=== PATIENT | male | born 1945 | race Caucasian/White ===

== ENCOUNTER 2019-03-13 05:16 | Inpatient (IN) | payer OTHER ==
--- NOTE | 2019-03-02 15:55 | NUR ---
PT CAME INTO PRE-OP CLINIC TODAY FOR PRE-OP TSA. PT READ THE SIGN ABOUT OPEN AREAS ON SKIN AND NOTIFIED ME HE HAD 2 AREAS ON HIS LT SIDE OPEN. UPON EXAM PT HAD 1.5 CM AREA ON LT NECK AND A 2CM AREA ON LT CHEST WHERE HE HAD MELANOMA REMOVED APPROX 2 WEEKS AGO. PT ALSO MENTIONED HE HAD CTR SURGERY ON THE RT HAND ABOUT 2 WEEKS WELL AND HAS A SCABBED BUT FRESHLY SCARED AREA ON RT PALM. PER PT HE WAS SEEN BY DR. MILLS TODAY AND DR. MILLS SAW THESE AREAS AND MENTIONED THEY WOULD BE OK AND WILL GO AHEAD WITH SURGERY.
[2019-03-02 16:40] LABS: BASOPHILS % (AUTO) 0.4 % (0-1); EOSINOPHILS # (AUTO) 0.2 X10'3 (0-0.9); EOSINOPHILS % (AUTO) 2.7 % (0-6); LYMPHOCYTES # (AUTO) 1.9 X10'3 (1.1-4.8); LYMPHOCYTES % (AUTO) 30.4 % (21-51); MEAN CORPUSCULAR HEMOGLOBIN 29.9 PG (27.0-31.0); MEAN CORPUSCULAR HGB CONC 34.3 g/dL (33.0-36.5); MEAN CORPUSCULAR VOLUME 87.2 FL (78-98); MEAN PLATELET VOLUME 8.6 FL (7.4-10.4); MONOCYTES # (AUTO) 0.6 X10'3 (0-0.9); MONOCYTES % (AUTO) 9.4 % (2-12); NEUTROPHILS # (AUTO) 3.6 X10'3 (1.8-7.7); NEUTROPHILS % (AUTO) 57.1 % (42-75); PRE OP HEMATOCRIT 39.1 % (42.0-52.0); PRE OP HEMOGLOBIN 13.4 g/dL (14.0-17.9); PRE OP PLATELET COUNT 169 X10'3 (140-440); RED BLOOD COUNT 4.49 X10'6 (4.70-6.10); RED CELL DISTRIBUTION WIDTH 14.7 % (11.5-14.5)
[2019-03-02 16:55] LABS: ALBUMIN 3.9 G/DL (3.4-5.0); ALKALINE PHOSPHATASE 77 IU/L (46-116); BLOOD UREA NITROGEN 21 MG/DL (7-18); BUN/CREATININE RATIO 19.3 (5.4-32.0); CALCIUM 10.1 MG/DL (8.5-10.1); CHLORIDE 108 MMOL/L (99-107); CREATININE 1.09 MG/DL (0.60-1.10); PRE OP ALT 24 U/L (30-65); PRE OP ANION GAP 8 (8-16); PRE OP AST 15 U/L (10-37); PRE OP BILIRUB, TOTAL 0.7 MG/DL (0.0-1.0); PRE OP GLUCOSE 134 MG/DL (70-104); PRE OP POTASSIUM 3.8 MMOL/L (3.4-5.1); PRE OP SODIUM 144 MMOL/L (135-145); TOTAL CARBON DIOXIDE 28.5 MMOL/L (24-32); TOTAL PROTEIN 7.8 G/DL (6.4-8.2); eGFR 66 ML/MIN
[2019-03-02 16:57] LABS: PRE OP INR 1.1 INR; PRE OP PROTIME 11.3 SECONDS (9.0-12.0)
[2019-03-02 17:00] LABS: HEMOGLOBIN A1C 6.5 % (4.5-6.2)
[2019-03-13] VITALS (15 sets, daily range): BP systolic 111–158; BP diastolic 55–98
[~2019-03-13] VITALS: Ht 190.5 cm; Wt 130.0 kg
[~2019-03-13 05:16] MED LIST: CHOL400T32 PO; CYAN500T63 PO; DABI150C PO; HYDR25TA4 PO; METF500T PO; PROP40TA72 PO; SIMV40TA PO; ringers solution, lacted 1,000 ML IV SCH
[2019-03-13] MEDS ORDERED: ceFAZolin 1GM/D5W- ADD-VANTAGE 50 ML IV ONE (05:30)
[2019-03-13] MEDS ORDERED: cefazolin/dext.iso 2gm/50ml 50 ML IV ONE (05:30)
[2019-03-13] MEDS ORDERED: vancomycin inj 1,500 MG in normal saline 300ml IV soln IV ONE (05:30)
[2019-03-13] MEDS ORDERED: famotidine 20mg tablet PO ONE (05:30)
[2019-03-13] MEDS ORDERED: LIDOcaine 1% (10mg/ml) 2ml vial ONE (05:58)
[2019-03-13] MEDS ORDERED: ketorolac trometh. 30mg/ml inj. ONE (07:59)
[2019-03-13] MEDS ORDERED: ROPIVAcaine 0.5% (5mg/ml) 30ml vial ONE ×2 (08:00→09:45)
[2019-03-13] MEDS ORDERED: tranexamic acid inj. 1,000 MG in normal saline 100ml IV soln 100 ML IV ONE ×3 (08:30→16:00)
[2019-03-13] MEDS ORDERED: ringers solution, lacted 1,000 ML IV SCH (08:31)
[2019-03-13] MEDS ORDERED: morphine 4 MG/ML inj SYRINge IV PRN ×2 (08:35)
[2019-03-13] MEDS ORDERED: ondansetron/PF 4mg/2ml inj IV PRN ×2 (08:35→13:00)
[2019-03-13] MEDS ORDERED: meperidine/PF 25mg/ml syringe IV PRN ×3 (08:35)
[2019-03-13] MEDS ORDERED: proCHLORperazine 10 MG/2 ml inj IV PRN (08:35)
[2019-03-13] MEDS ORDERED: MIDAZolam 5mg/5ml vial ONE (09:45)
[2019-03-13] MEDS ORDERED: fentaNYL/PF 50MCG/1 ML 2ML syringe ONE (09:45)
[2019-03-13] MEDS ORDERED: sevoflurane 250ml liquid IH ONE (09:47)
[2019-03-13] MEDS ORDERED: propofol inj 20 ML IV ONE (09:48)
[2019-03-13] MEDS ORDERED: LIDOcaine 1%/PF 5ML 10 MG/ML VIAL ONE (09:48)
[2019-03-13] MEDS ORDERED: rocuronium 10mg/ml inj IV ONE (10:35)
[2019-03-13] MEDS ORDERED: HYDROmorphone inj. 0.5 MG/0.5 ML DISP.SYRIN IV PRN (13:00)
[2019-03-13] MEDS ORDERED: HYDROmorphone 1 mg/ml syringe IV PRN (13:00)
[2019-03-13] MEDS ORDERED: oxyCODONE IR 5mg (immed. release) tablet PO PRN ×2 (13:00)
[2019-03-13] MEDS ORDERED: magnesium hydroxide 30ml (MOM) UD suspension PO PRN (13:00)
[2019-03-13] MEDS ORDERED: ROPIVAcaine 0.2%/PF PAIN PUMP 550 ML IJ SCH (13:00)
[2019-03-13] MEDS ORDERED: acetaminophen 325mg tablet PO PRN (13:00)
[2019-03-13] MEDS ORDERED: diphenhydrAMINE 25mg capsule PO PRN ×2 (13:00)
[2019-03-13] MEDS ORDERED: bisacodyl 10mg suppository rectal RC PRN (13:00)
--- NOTE | 2019-03-13 13:07 | NUR ---
Received from OR via , accompanied by Anesthesiologist DR VALIENTE and report given by Anesthesiolgist. AWAKENS TO VOICE. VITALS STABLE. DRESSING DI. LILI PAIN. RUE IN SIMPLE SLING. FINGERS WARM AND PINK.
--- NOTE | 2019-03-13 13:57 | NUR ---
Report called to receiving nurse. Transferred via BED Belongings . Special Issues communicated to receiving nurse. AWAKE AND ORIENTED. VITALS STABLE. DRESSING DI. LILI PAIN. TO ORTHO RM 4014M AT THIS TIME.
--- NOTE | 2019-03-13 14:00 | NUR ---
patient on floor. received report from Bakari LEIVA
[2019-03-13] MEDS: acetaminophen 325mg tablet PO SCH ×2 (15:07→20:02)
[2019-03-13] MEDS: potassium cl 20mEq in 1/2 NS 1,000 ML IV SCH ×2 (15:08→20:59)
[2019-03-13] MEDS: ceFAZolin 1GM/D5W- ADD-VANTAGE 50 ML IV SCH (15:32)
[2019-03-13] MEDS: metFORMIN 500mg tablet PO SCH (16:34)
--- NOTE | 2019-03-13 18:22 | NUR ---
Problems reprioritized. Patient report given, questions answered & plan of care reviewed with Kavon LEIVA.
--- NOTE | 2019-03-13 19:00 | NUR ---
Patient in room ORTHO 4015. I have received report from Kareem LEIVA and had the opportunity to ask questions and assume patient care.
[2019-03-13] MEDS: dabigatran 150mg capsule PO SCH (20:00)
[2019-03-13] MEDS ORDERED: vancomycin/NS 1 GM ADD-VANTAGE 250 ML IV SCH (20:00)
[2019-03-13] MEDS: propranolol 40mg tablet PO SCH (20:02)
[2019-03-13] MEDS ORDERED: sennosides 8.6mg tablet PO SCH (21:00)
[2019-03-14] MEDS: ceFAZolin 1GM/D5W- ADD-VANTAGE 50 ML IV SCH (00:10)
[2019-03-14 02:00] VITALS: BP 115/59
[2019-03-14] MEDS: acetaminophen 325mg tablet PO SCH ×2 (03:53→07:54)
[2019-03-14] MEDS: potassium cl 20mEq in 1/2 NS 1,000 ML IV SCH (04:59)
[2019-03-14 06:00] VITALS: BP 125/63
--- NOTE | 2019-03-14 06:58 | NUR ---
Problems reprioritized. Patient report given, questions answered & plan of care reviewed with Kavon LEIVA.
[2019-03-14 07:26] LABS: BASOPHILS % (AUTO) 0.3 % (0-1); EOSINOPHILS % (AUTO) 0.2 % (0-6); HEMATOCRIT 30.1 % (42.0-52.0); HEMOGLOBIN 10.5 g/dl (14.0-17.9); LYMPHOCYTES # (AUTO) 1.7 X10'3 (1.1-4.8); LYMPHOCYTES % (AUTO) 21.2 % (21-51); MEAN CORPUSCULAR HEMOGLOBIN 29.9 PG (27.0-31.0); MEAN CORPUSCULAR HGB CONC 34.8 g/dL (33.0-36.5); MEAN CORPUSCULAR VOLUME 86.1 FL (78-98); MEAN PLATELET VOLUME 8.5 FL (7.4-10.4); MONOCYTES # (AUTO) 0.9 X10'3 (0-0.9); NEUTROPHILS # (AUTO) 5.4 X10'3 (1.8-7.7); NEUTROPHILS % (AUTO) 67.3 % (42-75); PLATELET COUNT 189 X10'3 (140-440); RED CELL DISTRIBUTION WIDTH 14.7 % (11.5-14.5); WHITE BLOOD COUNT 8.1 X10'3 (4.5-11.0)
[2019-03-14 07:39] LABS: ANION GAP 10 (8-16); CHLORIDE 106 MMOL/L (99-107); SODIUM 141 MMOL/L (135-145)
[2019-03-14] MEDS: metFORMIN 500mg tablet PO SCH (07:54)
[2019-03-14] MEDS ORDERED: HYDROchlorothiazide 25mg tablet PO SCH (08:00)
[2019-03-14] MEDS ORDERED: atorvastatin 20mg tablet PO SCH (08:00)
[2019-03-14] MEDS ORDERED: cyanocobalamin 500mcg tablet PO SCH (08:00)
[2019-03-14] MEDS ORDERED: cholecalciferol (vitamin D) 400 unit tablet PO SCH (08:00)
[2019-03-14] MEDS: dabigatran 150mg capsule PO SCH (08:03)
[2019-03-14] MEDS: propranolol 40mg tablet PO SCH (08:03)
[2019-03-14] MEDS ORDERED: aspirin 325mg tablet PO SCH (08:30)
--- NOTE | 2019-03-14 09:02 | NUR ---
patient refused his insulin this morning, he said he does not take insulin just his metformin. patient educated on blood suger coverage and risks factors.
[2019-03-14 10:00] VITALS: BP 106/57
--- NOTE | 2019-03-14 11:05 | NUR ---
safe DC with spouse. all personal items with spouse
[2019-03-15] MEDS ORDERED: acetaminophen 325mg tablet PO PRN (13:00)
== END 2019-03-14 11:05 | disposition home or self-care (01) | DRG 483 ==
LOC: PAS IN 05:16 → EDSTATUS 12:00 → ORTHO 4S 14:00
PROVIDERS: ADMIT Orthopaedic Surgery; ATTEND Orthopaedic Surgery
PROC: 0LS40ZZ Reposition Left Upper Arm Tendon, Open Approach (ICD-10-PCS; 2019-03-13)
PROC: 3E0T3BZ Introduction of Anesthetic Agent into Peripheral Nerves and Plexi, Percutaneous Approach (ICD-10-PCS; 2019-03-13)
PROC: 0RRK00Z Replacement of Left Shoulder Joint with Reverse Ball and Socket Synthetic Substitute, Open Approach (ICD-10-PCS; principal; 2019-03-13 09:47)
DX: M19.012 Primary osteoarthritis, left shoulder (principal); D62 Acute posthemorrhagic anemia; I48.20 Chronic atrial fibrillation, unspecified; E11.9 Type 2 diabetes mellitus without complications; E78.5 Hyperlipidemia, unspecified; I10 Essential (primary) hypertension; M65.812 Other synovitis and tenosynovitis, left shoulder; M75.122 Complete rotator cuff tear or rupture of left shoulder, not specified as traumatic; M81.0 Age-related osteoporosis without current pathological fracture; E66.9 Obesity, unspecified; Z68.35 Body mass index [BMI] 35.0-35.9, adult; Z79.899 Other long term (current) drug therapy
CPT/HCPCS: 36415; 80051; 80053; 82948; 83036; 85025; 85610; 85730; 87081; 97161; 97530; A4215; A4565; A4618; A7000; C1776; G0378; J0690; J1885; J2001; J2250; J2704; J2795; J3010; J3370; J3480; J7120

== ENCOUNTER 2020-07-08 10:57 | Emergency (ER) | payer OTHER ==
[~2020-07-08] VITALS: Ht 193 cm; Wt 123.2 kg
[~2020-07-08 10:57] MED LIST changes: -CYAN500T63 PO; +CYAN500T71 PO; -ringers solution, lacted 1,000 ML IV SCH
--- NOTE | 2020-07-08 12:14 | NUR ---
TOMER [phone]
[2020-07-08 12:25] LABS: CLARITY,URINE CLEAR (Clear); COLOR,URINE YELLOW (Yellow); GLUCOSE, URINE NEGATIVE (Neg); KETONES,URINE NEGATIVE (Neg); LEUKOCYTE ESTERASE ,URINE NEGATIVE (Neg); NITRITES, URINE NEGATIVE (Neg); OCCULT BLOOD,URINE LARGE (Neg); PH,URINE 5.5 (4.8-8.0); PROTEIN,URINE 30 mg/dl (Neg); UROBILINOGEN,URINE 0.2 E.U/dL (0.2-1.0)
[2020-07-08 12:31] LABS: UA COLLECTION TYPE CLN CATCH MIDSTREAM
[2020-07-08 12:38] LABS: MUCUS STRANDS FEW /LPF (Neg); SQUAMOUS EPITHELIAL CELL,UR FEW /LPF (FEW)
[2020-07-08 12:39] LABS: BACTERIA,URINE FEW /HPF (Neg); RBC,URINE 20-50 /HPF (0-2)
[2020-07-08 12:41] LABS: WBC,URINE 0-4 /HPF (0-4)
[2020-07-08] MEDS ORDERED: LIDOcaine 2% 10ml TOPICAL JELLY (Urojet) TP ONE (12:45)
--- NOTE | 2020-07-08 13:08 | NUR ---
2 ATTEMPTS AT A LESTER, NO SUCCESS, BLEEDING FROM PENIS.
[2020-07-08 13:10] VITALS: BP 194/105
--- NOTE | 2020-07-08 14:20 | NUR ---
DR LAINEZ AT BEDSIDE PLACING FC.
== END 2020-07-08 15:11 | disposition home or self-care (01) ==
LOC: ER 10:58
DX: R33.9 Retention of urine, unspecified (principal); Z88.8 Allergy status to other drugs, medicaments and biological substances; Z79.899 Other long term (current) drug therapy
CPT/HCPCS: 51702; 81001; 99284

== ENCOUNTER 2020-07-15 10:46 | Emergency (ER) | payer OTHER, MEDICARE ==
[~2020-07-15] VITALS: Ht 182.9 cm; Wt 120.0 kg
[2020-07-15 10:53] VITALS: BP 153/88
== END 2020-07-15 12:00 | disposition home or self-care (01) ==
LOC: ER 10:47
DX: R33.9 Retention of urine, unspecified (principal); Z88.8 Allergy status to other drugs, medicaments and biological substances; Z79.899 Other long term (current) drug therapy
CPT/HCPCS: 99281

== ENCOUNTER 2020-07-16 11:55 | Emergency (ER) | payer OTHER, MEDICARE ==
[~2020-07-16] VITALS: Ht 193 cm; Wt 120.9 kg
[2020-07-16] MEDS ORDERED: LIDOcaine 2% 10ml TOPICAL JELLY (Urojet) MM ONE (12:45)
--- NOTE | 2020-07-16 13:08 | NUR ---
BLAINE req's that we attempt to place clark despite the urologist notes from previously. One attempt made by myself with assist of CALI William. Small amt of blood came out, unable to pass past prostrate, despite using urojet and 16Fr Coude.
--- NOTE | 2020-07-16 14:22 | NUR ---
DR MANNING AT BEDSIDE, HAS PLACED LESTER
[2020-07-16 15:48] VITALS: BP 164/93
== END 2020-07-16 15:50 | disposition home or self-care (01) ==
LOC: ER 11:55
DX: R32 Unspecified urinary incontinence (principal); R33.9 Retention of urine, unspecified; Z88.8 Allergy status to other drugs, medicaments and biological substances; Z79.899 Other long term (current) drug therapy; Z87.438 Personal history of other diseases of male genital organs
CPT/HCPCS: 51702; 99284